=== PATIENT | female | born 1990 | race African-American/Black ===

== ENCOUNTER 2016-12-18 22:47 | Emergency (ER) | payer SELFPAY ==
[~2016-12-18] VITALS: Ht 157.5 cm; Wt 59.0 kg
[2016-12-19] MEDS ORDERED: SODIUM CHLORIDE 0.9% 1,000ML IVBOLUS ONE
[2016-12-19] MEDS ORDERED: KETOROLAC 30 MG/1 ML IVPush ONE
[2016-12-19] MEDS ORDERED: ONDANSETRON 2MG/ML, 2ML IVPush ONE
[2016-12-19] MEDS ORDERED: FAMOTIDINE 20 MG/2 ML IVPush ONE
[2016-12-19] MEDS ORDERED: ONDANSETRON 2MG/ML, 2ML ONE (00:12)
[2016-12-19] MEDS ORDERED: KETOROLAC 30 MG/1 ML ONE (00:12)
[2016-12-19] MEDS ORDERED: FAMOTIDINE 20 MG/2 ML ONE (00:12)
[2016-12-19 00:35] VITALS: BP 105/60
[2016-12-19 00:38] LABS: ASPARTATE AMINO TRANSFERASE 11 U/L (15-37); BLOOD UREA NITROGEN 10 mg/dL (7-18)
== END 2016-12-19 02:09 | disposition home or self-care (01) ==
LOC: ED 23:59
DX: K29.00 Acute gastritis without bleeding (principal); F12.10 Cannabis abuse, uncomplicated
CPT/HCPCS: 36415; 80053; 81001; 83605; 84145; 84703; 85025; 87040; 87086; 87491; 87591; 96361; 96374; 96375; 99284; J1885; J2405; J7030; S0028

== ENCOUNTER 2019-05-20 08:50 | Emergency (ER) | payer MEDICAID ==
[~2019-05-20] VITALS: Ht 160 cm; Wt 60.5 kg
[2019-05-20] MEDS ORDERED: ACETAMINOPHEN 500 MG TABLET PO ONE (09:30)
[2019-05-20] MEDS ORDERED: PHENAZOPYRIDINE 200 MG TABLET PO ONE (09:30)
[2019-05-20] MEDS ORDERED: ONDANSETRON ODT 4 MG PO ONE (09:30)
[2019-05-20] MEDS ORDERED: ONDANSETRON ODT 4 MG ONE (09:35)
[2019-05-20] MEDS ORDERED: ACETAMINOPHEN 500 MG TABLET ONE (09:35)
[2019-05-20] MEDS ORDERED: PHENAZOPYRIDINE 200 MG TABLET ONE (09:35)
[2019-05-20 09:48] LABS: MICROSCOPIC INDICATED
[2019-05-20 09:56] LABS: HCG UR SG 1.037 (1.003-1.030)
[2019-05-20 10:25] LABS: RAPID INFLUENZA A Negative (Negative); RAPID INFLUENZA B Negative (Negative)
[2019-05-20 10:58] VITALS: BP 114/65
--- NOTE | 2019-05-20 10:59 | NUR ---
Patient/Caregiver given discharge instructions and they have confirmed that they understand the instructions. Patient ambulatory with steady gait.
== END 2019-05-20 11:09 | disposition home or self-care (01) ==
LOC: ED 11:00
DX: N30.00 Acute cystitis without hematuria (principal); B34.9 Viral infection, unspecified
CPT/HCPCS: 71046; 81001; 81025; 87400; 99284; Q0162